=== PATIENT | male | born 1975 | race Caucasian/White ===

== ENCOUNTER 2020-08-29 14:07 | Emergency (ER) | payer BC ==
[~2020-08-29] VITALS: Ht 175.3 cm; Wt 115.9 kg
[2020-08-29 16:38] VITALS: BP 143/94
== END 2020-08-29 16:38 | disposition home or self-care (01) | DRG 605 ==
LOC: ED 14:07
DX: S00.03XA Contusion of scalp, initial encounter (principal); S00.01XA Abrasion of scalp, initial encounter; W01.10XA Fall on same level from slipping, tripping and stumbling with subsequent striking against unspecified object, initial encounter; Y93.89 Activity, other specified; Y92.009 Unspecified place in unspecified non-institutional (private) residence as the place of occurrence of the external cause